=== PATIENT | male | born 1955 | race Caucasian/White ===

== ENCOUNTER 2018-10-12 14:46 | Outpatient (CLI) | payer OTHER ==
[2018-10-12 15:19] LABS: BASOPHILS % 0.6 % (0.0-1.5); NEUTROPHILS # 4.7 # k/uL (1.4-7.7)
[2018-10-12 15:52] LABS: HDL 42 mg/dL (>40); eGFR (Non-African) > 60
== END 2018-10-12 14:48 ==
LOC: LAB 14:46
PROVIDERS: ATTEND Family Medicine
DX: I10 Essential (primary) hypertension (principal)
CPT/HCPCS: 36415; 80053; 80061; 85025

== ENCOUNTER 2019-01-04 15:06 | Outpatient (CLI) | payer OTHER | END 2019-01-04 15:16 | LOC: RT 15:06 | PROVIDERS: ATTEND Family Medicine | DX: R00.1 Bradycardia, unspecified (principal) | CPT/HCPCS: 93005 ==